=== PATIENT | female | born 1980 | race Caucasian/White ===

== ENCOUNTER 2016-04-24 17:09 | Emergency (ER) | payer OTHER ==
[2016-04-24] MEDS ORDERED: SODIUM CHLORIDE 0.9% 1,000 ML IV ONE ×2 (17:33→18:22)
[2016-04-24] MEDS ORDERED: POTASSIUM BICARB 25 MEQ TABLET PO STA (18:22)
[2016-04-24] MEDS ORDERED: POTASSIUM BICARB 25 MEQ TABLET PO ONE (18:26)
== END 2016-04-24 19:42 | disposition home or self-care (01) ==
DX: E86.0 Dehydration (principal); E87.1 Hypo-osmolality and hyponatremia; E87.6 Hypokalemia; I10 Essential (primary) hypertension
CPT/HCPCS: 36415; 80053; 80306; 81003; 81025; 83690; 83735; 84100; 85025; 96360; 99283; 99284; A9270